=== PATIENT | male | born 1960 | race Caucasian/White ===

== ENCOUNTER 2023-03-14 18:49 | Emergency (ER) | payer BC, OTHER, SELFPAY ==
[2023-03-14] VITALS (12 sets, daily range): BP systolic 150–186; BP diastolic 91–129; PULSE 85–100; RESP 18–26; TEMP 36.7; O2SAT 93–99; BMI 31.3
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
--- NOTE | 2023-03-14 20:14 | ECG_ITS ---
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
[2023-03-14] MEDS: IBUPROFEN 400 MG TABLET 800 MG PO (21:55)
== END 2023-03-14 22:04 | disposition home or self-care (01) ==
PROVIDERS: Emergency Provider Emergency Medicine
DX: Z04.1 Encounter for examination and observation following transport accident (principal)
CPT/HCPCS: 71045; 72125; 73130; 93005; 99285